=== PATIENT | female | born 1990 | race Caucasian/White ===

== ENCOUNTER 2018-09-13 12:02 | Emergency (ER) | payer OTHER ==
[2018-09-13 12:55] VITALS: BP 141/93
--- NOTE | 2018-09-13 12:59 | UC ---
Complaint Female HPI - HPI Summary HPI Summary: 27 yo female presents with bladder pressure, urinary burning and frequency for the past 2 weeks. She has a hx of chronic UTIs and says that she tries her best to treat them herself, but this one will not go away. She denies fever, chills, abdominal pain, n/v, hematuria, flank pain, vaginal bleeding or discharge. - History Of Current Complaint Chief Complaint: UCGI Stated Complaint: UTI Time Seen by Provider: 09/13/18 12:59 Hx Obtained From: Patient Hx Last Menstrual Period: on mirena Onset/Duration: Gradual Onset Severity Initially: Mild Severity Currently: Moderate Pain Intensity: 6 Pain Scale Used: 0-10 Numeric - Allergies/Home Medications Allergies/Adverse Reactions: Allergies Allergy/AdvReac Type Severity Reaction Status Date / Time No Known Allergies Allergy Verified 09/13/18 12:55 PMH/Surg Hx/FS Hx/Imm Hx - Additional Past Medical History Additional PMH: None - Surgical History Surgical History: None - Family History Known Family History: Positive: None - Social History Occupation: Employed Full-time Lives: With Family Alcohol Use: Occasionally Substance Use Type: None Smoking Status (MU): Never Smoked Tobacco Have You Smoked in the Last Year: No Review of Systems Constitutional: Negative Skin: Negative Respiratory: Negative Cardiovascular: Negative Gastrointestinal: Negative Genitourinary: Dysuria, Frequency, Urgency Neurological: Negative Psychological: Negative All Other Systems Reviewed And Are Negative: Yes Physical Exam - Summary Physical Exam Summary: GENERAL: NAD. WDWN. No pain distress. SKIN: No rashes, sores, lesions, or open wounds. NECK: Supple. Nontender. No lymphadenopathy. CHEST: CTAB. No r/r/w. No accessory muscle use. Breathing comfortably and in no distress. CV: RRR. Without m/r/g. Pulses intact. Cap refill <2seconds ABDOMEN: Soft. NTTP. No distention or guarding. No CVA tenderness. Bowel sounds present NEURO: Alert. PSYCH: Age appropriate behavior. Triage Information Reviewed: Yes Vital Signs: Initial Vital Signs Temp 98.1 F 09/13/18 12:51 Pulse 102 09/13/18 12:51 Resp 18 09/13/18 12:51 BP 141/93 09/13/18 12:51 Pulse Ox 100 09/13/18 12:51 Laboratory Tests 09/13/18 13:02 POC Urine Color Yellow POC Urine Clarity Clear POC Urine pH 7.0 POC Ur Specif [place] 1.010 POC Urine Protein Negative POC Ur Glucose (UA) Negative POC Urine Ketones Negative POC Urine Blood 1+ A POC Urine Nitrite Positive A POC Urine Bilirubin Negative POC Urine Urobilinogen 0.2 POC U Leukocyte Esteras 2+ A Vital Signs Reviewed: Yes Complaint Female Dx - Course Course Of Treatment: UTI - Differential Dx/Diagnosis Provider Diagnoses: UTI Discharge - Sign-Out/Discharge Documenting (check all that apply): Patient Departure All imaging exams completed and their final reports reviewed: No Studies - Discharge Plan Condition: Stable Disposition: HOME Prescriptions: Sulfamethox/Trimethoprim DS* [Bactrim DS 800/160 TAB*] 1 tab PO BID #10 tab Patient Education Materials: Urinary Tract Infection in Women (DC) Forms: *Work Release Referrals: No Primary Care Phys,NOPCP [Primary Care Provider] - Additional Instructions: If you develop a fever, shortness of breath, chest pain, new or worsening symptoms - please call your PCP or go to the ED. Your blood pressure was high at todays visit. Please see your primary provider within 4 weeks for recheck and re-evaluation. - Billing Disposition and Condition Condition: STABLE Disposition: Home
--- NOTE | 2018-09-15 16:41 | UC ---
- Progress Note Progress Note: Urine culture comes back from September 13, 2018. Escherichia coli is gone out that is resistant to Bactrim which the patient has been prescribed. Nursing to call patient and let her know that have called in a prescription for Keflex that she is to start and stop the Bactrim. Discharge - Sign-Out/Discharge Documenting (check all that apply): Patient Departure All imaging exams completed and their final reports reviewed: No Studies - Discharge Plan Condition: Stable Disposition: HOME Prescriptions: Cephalexin CAP* [Keflex CAP*] 500 mg PO TID #21 cap Sulfamethox/Trimethoprim DS* [Bactrim DS 800/160 TAB*] 1 tab PO BID #10 tab Patient Education Materials: Urinary Tract Infection in Women (DC) Forms: *Work Release Referrals: No Primary Care Phys,NOPCP [Primary Care Provider] - Additional Instructions: If you develop a fever, shortness of breath, chest pain, new or worsening symptoms - please call your PCP or go to the ED. Your blood pressure was high at todays visit. Please see your primary provider within 4 weeks for recheck and re-evaluation. - Billing Disposition and Condition Condition: STABLE Disposition: Home
== END 2018-09-13 13:16 | disposition home or self-care (01) ==
LOC: UCEAST 12:02
DX: N39.0 Urinary tract infection, site not specified (principal)
CPT/HCPCS: 81003; 87077; 87086; 87186; 99211; G0463

== ENCOUNTER 2018-09-25 15:42 | Emergency (ER) | payer OTHER ==
[2018-09-25 15:56] VITALS: BP 131/98
--- NOTE | 2018-09-25 16:09 | UC ---
Complaint Female HPI - HPI Summary HPI Summary: Patient presents to urgent care reporting that she would like her Merina IUD removed. Patient states last week she went to her primary care doctor because she was having lower belly cramping. Patient states she had an ultrasound done and is waiting the results. Patient states she should get them yesterday. Patient states it was both transabdominal as well as intra-uterine. Patient states she felt like her IUD was moving. Patient states today she felt something hanging out of that she presumes is the lateral ring. Patient requesting it to be removed. Patient states she little bit low back pain. Patient states she was placed on antibiotics for UTI earlier this week. Patient states those symptoms have improved. Patient denies any fevers or chills. No nausea vomiting. No trauma. Patient denies any vaginal discharge, itching, rash prepay patient states she was tested for gonorrhea earlier this week and that was negative. Patient without any other complaints. Patient's medications reviewed this visit. Patient has not taken any analgesia - History Of Current Complaint Chief Complaint: UCGU Stated Complaint: PERSONAL Time Seen by Provider: 09/25/18 16:07 Hx Obtained From: Patient Hx Last Menstrual Period: doesn't get period d/t mirena ?: No Onset/Duration: Gradual Onset Pain Intensity: 7 - Allergies/Home Medications Allergies/Adverse Reactions: Allergies Allergy/AdvReac Type Severity Reaction Status Date / Time No Known Allergies Allergy Verified 09/25/18 15:56 Home Medications: Home Medications Acetaminophen [Tylenol] 325 mg PO 09/25/18 [History] Levonorgestrel (Iud) [Mirena IUD] 0 mcg 09/25/18 [History] PMH/Surg Hx/FS Hx/Imm Hx Previously Healthy: Yes - Surgical History Surgical History: None - Family History Known Family History: Positive: Non-Contributory - Social History Occupation: Employed Full-time Alcohol Use: Occasionally Substance Use Type: None Smoking Status (MU): Never Smoked Tobacco Have You Smoked in the Last Year: No Review of Systems All Other Systems Reviewed And Are Negative: Yes Genitourinary: Positive: Vaginal/Penile Pain Motor: Positive: Negative Physical Exam - Summary Physical Exam Summary: Vital Signs Reviewed: Yes A+Ox3, no distress Eyes: Conjunctiva Clear, NIYAH. EOM intact and full ENT: Hearing grossly normal TM x 2 clear, mmoist, uvula midline, no exudate, no erythema Neck: Positive: Supple Respiratory: Positive: No respiratory distress, No accessory muscle use + CTA throughout no w/r Cardiovascular: RRR nl s1, s2 no m/r CBT <2 sec abd soft + BS nt/nd no guarding, no distension, no CVA Pelvis: RALPH Aguiar at bedside - visible string from IUD - slow steady traction and removed - appears full and in tact. No bleeding. pt with mild thick discharge at os no bleeding no CMT no lesions - Affirm sample taken Musculoskeletal Exam: BOYD x 4 without difficulty Strength Intact, ROM Intact Neurological: Positive: Alert, + sensation throughout Psychological: Positive: Normal Response To Family Skin: Positive: no rash, no ecchymosis Triage Information Reviewed: Yes Vital Signs: Initial Vital Signs Temp 98 F 09/25/18 15:51 Pulse 93 09/25/18 15:51 Resp 16 09/25/18 15:51 BP 131/98 09/25/18 15:51 Pulse Ox 100 09/25/18 15:51 Re-Evaluation - Re-Evaluation First Eval Re-Evaluation Time: 16:50 Change: Improved - Pt sates "I feel so much better" = no cramping, no back pain Complaint Female Dx - Course Course Of Treatment: Pt presents requesting her IUD be removed Pt with pelvic cramping and increasing x 3 days. Pt had US Wednesday Pt awiating results. today felt IUD. On exam - IUD visible - removed intact and full. Pt with mild discharge - c/w yeas t. Tim gove diflucan - affirm sent. Pt gave urine - hcg neg. trace leuk. pt completng abx for UTI - will culture. no UTI sx. d/w pt need for bck up control. keep gym appt as scheduled to discuss optoin. likely precipitate menses. pt comfortable and in agreement [facility] plan. Pt declined STD testing -was tested earlier this week and neg - Differential Dx/Diagnosis Provider Diagnoses: vaginal fb. vaginal discharge - likely yeast Discharge - Sign-Out/Discharge Documenting (check all that apply): Patient Departure All imaging exams completed and their final reports reviewed: No Studies - Discharge Plan Condition: Stable Disposition: HOME Prescriptions: Fluconazole [Diflucan 150 MG (NF)] 150 mg PO ONCE #1 tab Patient Education Materials: Yeast Infection (ED), Vaginal Foreign Body (ED) Referrals: Emanuel Suarez DO [Primary Care Provider] - Additional Instructions: - Your IUD has been removed today. you may continue to have some lower abdominal cramping - this is normal. If pain significantly increases, you have fevers, vomiting, back pain or other concerns it is recommended you go to the emergency department for further evaluation - you have vaginal spotting today - this is normal. You will likely have a menses soon - Okay to take ibuprofen (Advil, Motrin) or tylenol as needed for discomfort - Use a back-up control - you have been given the one time treatment for vaginal yeast infection based on today's examination - Billing Disposition and Condition Condition: STABLE Disposition: Home
--- NOTE | 2018-09-27 15:54 | UC ---
- Progress Note Progress Note: Yeast positive BV positive. Pt was treated for yeast at her visit, but not BV. Sent for Flagyl 500mg BID for 1 week to treat BV Re-Evaluation - Re-Evaluation First Eval Re-Evaluation Time: 16:50 Change: Improved - Pt sates "I feel so much better" = no cramping, no back pain Discharge - Sign-Out/Discharge Documenting (check all that apply): Post-Discharge Follow Up All imaging exams completed and their final reports reviewed: No Studies - Discharge Plan Condition: Stable Disposition: HOME Prescriptions: Fluconazole [Diflucan 150 MG (NF)] 150 mg PO ONCE #1 tab metroNIDAZOLE [Flagyl 500 MG TAB] 500 mg PO BID #14 tab Patient Education Materials: Yeast Infection (ED), Vaginal Foreign Body (ED) Referrals: Emanuel Suarez DO [Primary Care Provider] - Additional Instructions: - Your IUD has been removed today. you may continue to have some lower abdominal cramping - this is normal. If pain significantly increases, you have fevers, vomiting, back pain or other concerns it is recommended you go to the emergency department for further evaluation - you have vaginal spotting today - this is normal. You will likely have a menses soon - Okay to take ibuprofen (Advil, Motrin) or tylenol as needed for discomfort - Use a back-up control - you have been given the one time treatment for vaginal yeast infection based on today's examination - Billing Disposition and Condition Condition: STABLE Disposition: Home
== END 2018-09-25 17:01 | disposition home or self-care (01) ==
LOC: UCEAST 15:42
DX: T19.2XXA Foreign body in vulva and vagina, initial encounter (principal); N89.8 Other specified noninflammatory disorders of vagina; X58.XXXA Exposure to other specified factors, initial encounter; Y92.9 Unspecified place or not applicable
CPT/HCPCS: 58301; 81003; 84702; 87086; 87480; 87510; 87660; 99212; G0463

== ENCOUNTER 2018-12-13 17:37 | Emergency (ER) | payer OTHER ==
[2018-12-13 18:23] VITALS: BP 117/80
--- NOTE | 2018-12-13 20:01 | UC ---
Complaint Female HPI - HPI Summary HPI Summary: 5 DAYS OF LOWER ABDOMINAL CRAMPING SIMILAR TO MENSTRUAL CRAMPS HOWEVER PATIENT IS NOT ON HER PERIOD. HAS SHARP PAIN IN HER RIGHT GROIN WELL. MILD LOW BACK PAIN. NO FEVER OR NAUSEA. DENIES ANY DYSURIA. - History Of Current Complaint Chief Complaint: UCGU Stated Complaint: PERSONAL Time Seen by Provider: 12/13/18 19:10 Hx Obtained From: Patient Hx Last Menstrual Period: [id number] Onset/Duration: Gradual Onset, Lasting Days, Still Present Severity Initially: Moderate Severity Currently: Moderate Pain Intensity: 6 Pain Scale Used: 0-10 Numeric Character: Cramping Aggravating Factor(s): Nothing Alleviating Factor(s): Nothing Associated Signs And Symptoms: Positive: Back Pain. Negative: Fever, Nausea, Vomiting(# Of Episodes =) - Allergies/Home Medications Allergies/Adverse Reactions: Allergies Allergy/AdvReac Type Severity Reaction Status Date / Time No Known Allergies Allergy Verified 12/13/18 18:23 Home Medications: Home Medications Norethindrone (NF) [Jolanta (NF)] 0.35 mg PO DAILY 12/13/18 [History Confirmed 12/13/18] PMH/Surg Hx/FS Hx/Imm Hx Previously Healthy: Yes - Surgical History Surgical History: None - Family History Known Family History: Positive: None, Non-Contributory - Social History Alcohol Use: Occasionally Substance Use Type: None Smoking Status (MU): Never Smoked Tobacco Have You Smoked in the Last Year: No Review of Systems All Other Systems Reviewed And Are Negative: Yes Constitutional: Positive: Negative ENT: Positive: Negative Respiratory: Positive: Negative Cardiovascular: Positive: Negative Gastrointestinal: Positive: Abdominal Pain Genitourinary: Positive: Other - BACK PAIN. Negative: Dysuria, Frequency, Urgency Physical Exam Triage Information Reviewed: Yes Appearance: Well-Appearing, No Pain Distress, Well-Nourished Vital Signs: Initial Vital Signs Temp 97.8 F 12/13/18 18:17 Pulse 75 12/13/18 18:17 Resp 19 12/13/18 18:17 BP 117/80 12/13/18 18:17 Pulse Ox 99 12/13/18 18:17 Laboratory Tests 12/13/18 12/13/18 19:23 19:25 POC Urine Color Yellow POC Urine Clarity [place] POC Urine pH 8.0 POC Ur Specif [place] 1.020 POC Urine Protein 1+ A POC Ur Glucose (UA) Negative POC Urine Ketones Negative POC Urine Blood 2+ A POC Urine Nitrite Positive A POC Urine Bilirubin Negative POC Urine Urobilinogen 0.2 POC U Leukocyte Esteras 1+ A POC Ur Test Negative Vital Signs Reviewed: Yes Eyes: Positive: Conjunctiva Clear ENT: Positive: Hearing grossly normal Neck: Positive: Supple Respiratory: Positive: No respiratory distress, No accessory muscle use Cardiovascular: Positive: Pulses Normal Abdomen Description: Positive: Nontender, Soft. Negative: CVA Tenderness (R), CVA Tenderness (L), Distended, Guarding Musculoskeletal: Positive: No Edema Neurological: Positive: Alert Psychological: Positive: Age Appropriate Behavior Skin: Negative: Rashes Complaint Female Dx - Course Course Of Treatment: DISCUSSED CT SCAN TO FURTHER EVALUATE PT'S ABDOMINAL PAIN. SHE DECLINES. STATES SHE WOULD LIKE TO BE TX FOR UTI AND WILL F/U WITH PCP IF SX PERSIST. - Differential Dx/Diagnosis Provider Diagnosis: UTI (urinary tract infection) Discharge - Sign-Out/Discharge Documenting (check all that apply): Patient Departure All imaging exams completed and their final reports reviewed: No Studies - Discharge Plan Condition: Stable Disposition: HOME Prescriptions: Sulfamethox/Trimethoprim DS* [Bactrim DS 800/160 TAB*] 1 tab PO BID #10 tab Patient Education Materials: Urinary Tract Infection in Women (ED) Referrals: [facility] [Provider Group] - 2 Weeks Emanuel Suarez DO [Primary Care Provider] - If Needed Additional Instructions: GIVEN YOUR REPORT OF FREQUENT UTI WOULD CONSIDER FOLLOWING UP WITH A UROLOGIST TO ENSURE THERE IS NO UNDERLYING REASON FOR YOUR CURRENT SYMPTOMS. TAKE THE BACTRIM TWICE DAILY PRESCRIBED TO TREAT FOR PROBABLE UTI TODAY. URINE HAS BEEN SENT FOR CULTURE AND WE WILL CALL YOU IF YOUR MEDICATION NEEDS TO BE CHANGED. - Billing Disposition and Condition Condition: STABLE Disposition: Home
[2018-12-16 16:02] LABS: Ureaplasma parvum PCR Positive; Ureaplasma urealyticum PCR Negative
[2018-12-16 16:05] LABS: Mycoplasma hominis Result Negative
--- NOTE | 2018-12-16 17:42 | UC ---
- Progress Note Progress Note: Pt urine culture with e coli AND ureaplasma. The ureaplasma is likely why she is having chronic feelings of a UTI. -- If she has already followed up with Urology, then advise her to follow their recommendation. -- If she has NOT followed up with Urology, please have her STOP bactrim and start Doxycycline BID for 1 week and call Urology to schedule an appointment. Course/Dx - Diagnoses Provider Diagnoses: UTI (urinary tract infection) Discharge - Sign-Out/Discharge Documenting (check all that apply): Post-Discharge Follow Up All imaging exams completed and their final reports reviewed: No Studies - Discharge Plan Condition: Stable Disposition: HOME Prescriptions: DOXYcycline CAP(*) [DOXYcycline 100MG CAP(*)] 100 mg PO BID #14 cap Sulfamethox/Trimethoprim DS* [Bactrim DS 800/160 TAB*] 1 tab PO BID #10 tab Patient Education Materials: Urinary Tract Infection in Women (ED) Referrals: [facility] [Provider Group] - 2 Weeks Emanuel Suarez DO [Primary Care Provider] - If Needed Additional Instructions: GIVEN YOUR REPORT OF FREQUENT UTI WOULD CONSIDER FOLLOWING UP WITH A UROLOGIST TO ENSURE THERE IS NO UNDERLYING REASON FOR YOUR CURRENT SYMPTOMS. TAKE THE BACTRIM TWICE DAILY PRESCRIBED TO TREAT FOR PROBABLE UTI TODAY. URINE HAS BEEN SENT FOR CULTURE AND WE WILL CALL YOU IF YOUR MEDICATION NEEDS TO BE CHANGED. - Billing Disposition and Condition Condition: STABLE Disposition: Home
== END 2018-12-13 19:59 | disposition home or self-care (01) ==
LOC: UCEAST 17:37
DX: N39.0 Urinary tract infection, site not specified (principal)
CPT/HCPCS: 81003; 84702; 87077; 87086; 87186; 87798; 99212; G0463